=== PATIENT | female | born 1990 | race African-American/Black ===

== ENCOUNTER 2020-09-30 13:11 | Emergency (ER) | payer MEDICAID, OTHER ==
[~2020-09-30] VITALS: Ht 165.1 cm; Wt 79.0 kg
[2020-09-30] MEDS ORDERED: ONDANSETRON HCL 4MG/2ML INJ IV STA (13:31)
[2020-09-30] MEDS ORDERED: SODIUM CHLORIDE 0.9% 1,000 ML IV ONE (13:45)
[2020-09-30 14:12] LABS: BASOPHILS % 0.4 % (0.0-2.0); EOSINOPHILS % 1.2 % (0.0-5.0); HEMATOCRIT. 36.5 % (36.0-48.0); LYMPHOCYTES % 29.9 % (20.0-50.0); MEAN CORPUSCULAR VOLUME 67.1 fL (81.0-99.0); MEAN PLATELET VOLUME 7.7 fl (7.4-10.4); MONOCYTES % 9.7 % (2.0-8.0); NEUTROPHILS % 58.8 % (40.0-76.0); PLATELET 294 x1000/uL (130-400); RED BLOOD CELL COUNT 5.44 mill/uL (4.2-5.4)
[2020-09-30 14:17] LABS: CHLORIDE 100 mEq/L (98-107)
[2020-09-30 14:39] LABS: B-HCG QUANTITATIVE 69953 mIU/mL (<3)
[2020-09-30 14:41] LABS: PLATELET ESTIMATE NORMAL
[2020-09-30] MEDS ORDERED: METOCLOPRAMIDE HCL 10MG/2ML VIAL IV ONE (17:15)
[2020-09-30] MEDS ORDERED: LACTATED RINGERS 1,000 ML IV SCH (17:30)
[2020-09-30 17:49] LABS: CLARITY URINE CLEAR (CLEAR); COLOR URINE DARK YELLOW (YELLOW); KETONES URINE 4+ (NEGATIVE); LEUKOCYTE ESTERASE URINE TRACE (NEGATIVE); NITRITE URINE NEGATIVE (NEGATIVE); OCCULT BLOOD URINE NEGATIVE (NEGATIVE); PROTEIN URINE 1+ (NEGATIVE); SPECIFIC GRAVITY URINE 1.037 (1.005-1.030)
[2020-09-30] MEDS ORDERED: METO-293 MT (20:23)
[2020-09-30 20:49] VITALS: BP 112/68
== END 2020-09-30 20:55 | disposition home or self-care (01) ==
LOC: ER 13:11
DX: O21.0 Mild hyperemesis gravidarum (principal); O26.891 Other specified pregnancy related conditions, first trimester; R42 Dizziness and giddiness; F12.10 Cannabis abuse, uncomplicated; E86.0 Dehydration; Z3A.01 Less than 8 weeks gestation of pregnancy
CPT/HCPCS: 36415; 76801; 80053; 81003; 84702; 85025; 96361; 96374; 96375; 99285; J2405; J2765; J7030; J7120

== ENCOUNTER 2021-04-12 09:08 | Emergency (ER) | payer OTHER ==
[~2021-04-12] VITALS: Ht 165.1 cm; Wt 87.0 kg
[~2021-04-12 09:08] MED LIST: METO-293 MT
[2021-04-12 11:02] VITALS: BP 142/75
== END 2021-04-12 11:03 | disposition home or self-care (01) ==
LOC: ER 09:20
DX: O9A.213 Injury, poisoning and certain other consequences of external causes complicating pregnancy, third trimester (principal); S16.1XXA Strain of muscle, fascia and tendon at neck level, initial encounter; S39.012A Strain of muscle, fascia and tendon of lower back, initial encounter; Z3A.35 35 weeks gestation of pregnancy; V49.49XA Driver injured in collision with other motor vehicles in traffic accident, initial encounter; Y93.89 Activity, other specified; Y92.89 Other specified places as the place of occurrence of the external cause; Y99.8 Other external cause status
CPT/HCPCS: 99281

== ENCOUNTER 2021-04-12 10:38 | Observation (INO) | payer OTHER ==
[~2021-04-12] VITALS: Ht 165.1 cm; Wt 87.1 kg
[2021-04-12 11:37] LABS: BASOPHILS % 0.6 % (0.0-2.0); EOSINOPHILS % 0.5 % (0.0-5.0); HEMATOCRIT. 30.1 % (36.0-48.0); HEMOGLOBIN. 9.5 g/dL (12.0-16.0); LYMPHOCYTES % 17.1 % (20.0-50.0); MEAN CORPUSCULAR HEMOGLOBIN 21.1 pg (28.0-32.0); MEAN CORPUSCULAR VOLUME 67.1 fL (81.0-99.0); MEAN PLATELET VOLUME 7.3 fl (7.4-10.4); MONOCYTES % 7.9 % (2.0-8.0); NEUTROPHILS % 73.9 % (40.0-76.0); PLATELET 282 x1000/uL (130-400); RED BLOOD CELL COUNT 4.49 mill/uL (4.2-5.4); RED CELL DISTRIBUTION WIDTH 17.3 % (11.6-14.6)
[2021-04-12 11:45] LABS: PARTIAL THROMBOPLASTIN TIME 26.3 sec (23.4-31.0); PROTHROMBIN TIME 10.3 sec (9.6-11.0)
== END 2021-04-12 11:20 | disposition home or self-care (01) ==
LOC: 8 EST LDRP 10:38
PROVIDERS: ADMIT Obstetrics & Gynecology; ATTEND Obstetrics & Gynecology
DX: Z04.3 Encounter for examination and observation following other accident (principal); O99.891 Other specified diseases and conditions complicating pregnancy; M54.9 Dorsalgia, unspecified; Z3A.35 35 weeks gestation of pregnancy; V89.2XXA Person injured in unspecified motor-vehicle accident, traffic, initial encounter; Y93.89 Activity, other specified; Y92.89 Other specified places as the place of occurrence of the external cause; Y99.8 Other external cause status
CPT/HCPCS: 36415; 59025; 85025; 99281; G0378